=== PATIENT | female | born 1945 | race Caucasian/White ===

== ENCOUNTER 2018-10-13 11:02 | Inpatient (IN) | payer MEDICARE, BC ==
--- NOTE | 2018-10-13 11:48 | RAD ---
XR Chest 1 View Portable History: Chest pain Comparison: Radiograph 2013 Findings: There is a opacity within the lingula. Mild blunting left lateral costophrenic sulcus. Righ t lung is relatively clear. No pneumothorax. Impression: Lingular opacity with small left effusion concerning for infection.
[2018-10-13 11:53] LABS: Bilirubin Small (Negative); Blood, Urine Trace (Negative); Glucose, Urine (Dipstick) Negative (Negative); Leukocyte Negative (Negative); Nitrite Negative (Negative); Protein, Urine (Dipstick) Trace mg/dL (Neg-Trace); Urobilinogen 0.2 mg/dL (0.2-1.0)
[2018-10-13 11:56] LABS: Clarity Clear (Clear)
[2018-10-13 12:00] LABS: Hyaline Casts/LPF 0-3 HYALINE CAST LPF (0-3 Hyaline); Other Microscopic Description Less than 2 mL rec'd; RBC/HPF None Seen HPF (0-3); Squamous Epithelial 0-3 HPF (0-3); WBC/HPF 0-3 HPF (0-3)
[2018-10-13 12:28] LABS: #Eosinphils 0.1 thou/uL (0.0-0.7); #Lymphocytes 1.5 thou/uL (1.20-3.40); #Monocytes 0.9 thou/uL (0.11-0.59); #Neutrophils 11.4 thou/uL (1.40-6.50); %Basophils 0.1 % (0.0-1.0); %Eosinophils 0.5 % (0.0-10.0); %Lymphocytes 10.8 % (21.0-51.0); %Monocytes 6.2 % (0.0-10.0); %Neutrophils 82.4 % (42.0-75.0); Hemoglobin 14.5 g/dL (12.0-16.0); Mean Corpuscular HGB CONC 33.7 g/dL (32.0-36.0); Mean Corpuscular Hemoglobin 30.3 pg (27.0-31.0); Mean Corpuscular Volume 89.8 fL (78.0-98.0); Platelet Count 376 thou/uL (130-400); RBC Distribution Width 14.1 % (11.5-14.5); Red Blood Cell (RBC) Count 4.78 mill/uL (4.20-5.40); White Blood Cell (WBC) Count 13.9 thou/uL (4.8-10.8)
[2018-10-13 12:37] LABS: Prothrombin Time 22.7 SEC (12.0-14.7)
[2018-10-13 12:53] LABS: ALT (SGPT) 11 U/L (8-55); AST (SGOT) 17 U/L (5-34); Albumin 4.2 g/dL (3.4-4.8); Alkaline Phosphatase 87 U/L (40-150); Anion Gap 19 mmol/L (10-20); BUN (Urea Nitrogen) 25 mg/dL (9.8-20.1); Bilirubin, Total 0.6 mg/dL (0.2-1.2); Calc. Creatinine Clearance 0 mL/min (70-130); Calcium 10.7 mg/dL (7.8-10.44); Carbon Dioxide 34 mmol/L (23-31); Chloride 85 mmol/L (98-107); Estimated GFR-MDRD 29; Globulin 3.3 g/dL (2.4-3.5); Glucose 96 mg/dL (83-110); Lipase 13 U/L (8-78); Protein, Total 7.5 g/dL (6.0-8.3); Sodium 135 mmol/L (136-145)
[2018-10-13 13:07] LABS: Potassium 2.8 mmol/L (3.5-5.1)
[2018-10-13 13:12] LABS: CKMB 1.3 ng/mL (0-6.6)
[2018-10-13] MEDS ORDERED: Potassium Chloride 20 MEQ TAB ONE (13:42)
[2018-10-13] MEDS ORDERED: Fentanyl 100 MCG/2 ML VIAL ONE ×2 (13:42→17:34)
--- NOTE | 2018-10-13 13:52 | CT ---
Abdomen CT without contrast Pelvic CT without contrast History abdominal pain. Chest pain. FINDINGS: Abdomen CT: Lung bases are clear Heart size. No fluid. Visualized aorta has a normal caliber Limited evaluation of the solid organs by the lack of IV contrast. Grossly no solid organ abnormality Surgically absent gallbladder Bilaterally no hydronephrosis, nephrolithiasis or perinephric fat stranding. Bilateral ureters have a normal caliber. No hydroureter, perirenal periureteral fat stranding or ureterolithiasis No gastrohepatic, retrocrural or periportal lymphadenopathy No mesenteric mass or lymphadenopathy free air or free fluid No evidence of bowel herniation Limited evaluation of the alimentary canal by the lack of oral contrast. Bariatric postsurgical dixon es are noted. There is mild dilatation of the proximal Celeste limb. Remaining small bowel loops are unremarkable. Ileocecal junction is normal. Appendix is unremarkable. Catheter fecal material in a no ndistended, nondilated colon. Diverticulosis, without evidence of diverticulitis CT PELVIS: Hysterectomy changes. No pelvic mass, lymphadenopathy, free air or free fluid No lytic or blastic changes in the osseous structures. There is a stent in the left external iliac ar karen and common femoral artery. IMPRESSION: 1. No evidence of obstructive uropathy 2. Prominence of the proximal Celeste limb. Significance is uncertain. No evidence of high-grade obstruc tion. 3. Normal caliber appendix.
[2018-10-13] MEDS ORDERED: cefTRIAXone\\ROCEPHIN 1 GM VIAL ONE (14:12)
[2018-10-13 15:41] LABS: Troponin I 0.017 ng/mL (< 0.028)
--- NOTE | 2018-10-13 16:14 | PDOC.FPRHP ---
- History of Present Illness Chief Complaint: Vomiting, abdominal pain, chest pain History of Present Illness: 73 yo female with history of COPD, HTN, PAD, and bariatric surgery presents to the ED today complaining of vomiting, abdominal pain, and chest pain. The pt's stated that about 3 mo ago the pt was admitted for respiratory failure, at which time he states he believes the pt coded, since then she has had difficulty with her short term memory. and pt state that starting about a week ago the pt had been complaining of abdominal and flank pain. 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 Due to this the pt has been utilizing stool softeners at home to prevent a SBO. Pt states her last BM was 3 days ago which is typical for her. Last night the pt was experiencing epigastric/chest pain pain that she felt was related to GERD. Then this morning around 1am the pts stated that the pt got up from bed, complained of severe dizziness, and slumped back on to the bed unresponsive with her eyes open. She was breathing normally throughout this time. Afterwards the pt was acting normal. Through the remainder of the morning the patient was having more upper abdominal/chest pain pain, dizziness, lack of appetite, and shortness of breath prompting the evaluation in the ED today. Pt utilizes supplemental O2 at home and runs between 2.5-3L and nebulizers. After discussing CXR findings with pt including a left lower lobe effusion and consolidation pt's stated that the pt has a known "scar" or "nodule" in the area of her lung that has been previously evaluated and they are aware. ED Course: While in ED pt recieved Duoneb, rocephin, fentanyl, and 1L of fluid Troponin 0.029; CKMB 1.3; Potassium 2.8; Mg 1.9; BUN 25; Cr 1.73; Ca 10.7; PT 22.7; WBC 13.9; Neut 82.4% - Allergies/Adverse Reactions Allergies Allergy/AdvReac Type Severity Reaction Status Date / Time hydrocodone Allergy Verified 10/13/18 16:28 meperidine [From Demerol] Allergy Verified 10/13/18 16:28 Penicillins Allergy Verified 10/13/18 16:28 - Home Medications Medication Instructions Recorded Confirmed Type ALPRAZolam [Alprazolam] 0.5 mg PO BID PRN 10/13/18 10/13/18 History Furosemide 80 mg PO PRN PRN 10/13/18 10/13/18 History predniSONE 10 mg PO DAILY 10/13/18 10/13/18 History - History PMHx: COPD, PAD, SBO, TIA PSHx: Femoral bypass x3, gastric sleeve, back surgery, cholecystectomy, total abdominal hysterectomy Social: Smokes 4 cigarettes per day - Review of Systems General: reports: fatigue Respiratory: reports: cough, shortness of breath, exercise intolerance Cardiovascular: reports: chest pain (lower chest) Gastrointestinal: reports: nausea, vomiting, abdominal pain (upper) Musculoskeletal: reports: other (flank pain bilaterally) Neurological: reports: syncope (vs. near syncope), weakness (generalized), other (dizziness) - Vital signs BP: 121/96 HR: 84 RR: 20 Tmax: 98.5 Pox: 100% on 1L Wt: 77.4 kg - Physical Exam Constitutional: awake, alert and oriented HEENT: grossly normal hearing Neck: FROM Chest: no-tender to palpation, no lesions Heart: RRR, normal S1/S2, pulses present -Lungs: mild inspiratory and moderate expiratory wheezing noted prolonged expiratory phase breath sounds mildly decreased in left lower lobe Abdomen: soft, non-tender, bowel sounds present Musculoskeletal: normal structure, normal tone, ROM grossly normal Neurological: no focal deficit -Neurological: short term memory is impaired - reports baseline Skin: no rash/lesions Psychiatric: normal mood and affect, good judgment and insight FMR H&P: Results - Labs Result Diagrams: 10/13/18 12:20 10/13/18 12:20 Lab results: WBC 13.9 thou/uL (4.8-10.8) H 10/13/18 12:20 Hgb 14.5 g/dL (12.0-16.0) 10/13/18 12:20 Hct 42.9 % (36.0-47.0) 10/13/18 12:20 MCV 89.8 fL (78.0-98.0) 10/13/18 12:20 Plt Count 376 thou/uL (130-400) 10/13/18 12:20 Neutrophils % 82.4 % (42.0-75.0) H 10/13/18 12:20 Sodium 135 mmol/L (136-145) L 10/13/18 12:20 Potassium 2.8 mmol/L (3.5-5.1) L* 10/13/18 12:20 Chloride 85 mmol/L (98-107) L 10/13/18 12:20 Carbon Dioxide 34 mmol/L (23-31) H 10/13/18 12:20 BUN 25 mg/dL (9.8-20.1) H 10/13/18 12:20 Creatinine 1.73 mg/dL (0.6-1.1) H 10/13/18 12:20 Glucose 96 mg/dL (83-110) 10/13/18 12:20 Calcium 10.7 mg/dL (7.8-10.44) H 10/13/18 12:20 Total Bilirubin 0.6 mg/dL (0.2-1.2) 10/13/18 12:20 AST 17 U/L (5-34) 10/13/18 12:20 ALT 11 U/L (8-55) 10/13/18 12:20 Alkaline Phosphatase 87 U/L (40-150) 10/13/18 12:20 CK-MB (CK-2) 1.3 ng/mL (0-6.6) 10/13/18 12:20 Serum Total Protein 7.5 g/dL (6.0-8.3) 10/13/18 12:20 Albumin 4.2 g/dL (3.4-4.8) 10/13/18 12:20 Lipase 13 U/L (8-78) 10/13/18 12:20 Urine Ketones Negative mg/dL (Negative) 10/13/18 11:39 Urine Blood Trace (Negative) H 10/13/18 11:39 Urine Nitrite Negative (Negative) 10/13/18 11:39 Ur Leukocyte Esterase Negative (Negative) 10/13/18 11:39 Urine RBC None Seen HPF (0-3) 10/13/18 11:39 Urine WBC 0-3 HPF (0-3) 10/13/18 11:39 Ur Squamous Epith Cells 0-3 HPF (0-3) 10/13/18 11:39 - EKG Interpretation EKG: EKG: NSR 90bpm w/ premature atrial complexes, septal infarct, age undetermined, ST and T waves normal - Radiology Interpretation Chest x-ray Status: report reviewed by me Additional comment: CXR: Lingular opacity with small left effusion concerning for infection CT scan - abdomen Status: report reviewed by me Additional comment: CT abdomen pelvis w/o contrast: Prominence of proximal Celeste limb significance uncertain. No other significant findings. FMR H&P: A/P - Problem List (1) Chronic respiratory failure with hypoxia, on home O2 therapy Current Visit: Yes Status: Acute Code(s): J96.11 - CHRONIC RESPIRATORY FAILURE WITH HYPOXIA; Z99.81 - DEPENDENCE ON SUPPLEMENTAL OXYGEN (2) Chest pain Current Visit: Yes Status: Acute Code(s): R07.9 - CHEST PAIN, UNSPECIFIED (3) COPD (chronic obstructive pulmonary disease) Current Visit: Yes Status: Chronic (4) Pre-syncope Current Visit: Yes Status: Acute (5) Hyperkalemia Current Visit: Yes Status: Acute Code(s): E87.5 - HYPERKALEMIA (6) Acute kidney injury Current Visit: Yes Status: Acute Code(s): N17.9 - ACUTE KIDNEY FAILURE, UNSPECIFIED Comment: vs CKD (7) Essential hypertension Current Visit: Yes Status: Chronic Code(s): I10 - ESSENTIAL (PRIMARY) HYPERTENSION - Plan Chest pain - Risk factors present, HEART score 6 - Atypical in nature, no previous cardiac workup - Trending troponin 0.029 --> 0.017 - CKMB 1.3 - Chemical stress test tomorrow - Transthoracic echo - Prn nitro Pneumonia - WBC 13.9 with left shift - Procalcitonin - Trend CBC - Start rocephin and azithromycin - Left lower lobe opacity may be chronic for pt as per given history, however with elevated WBC and pt's symptoms and history deemed reasonable to treat COPD and Chronic respiratory failure with hypoxia - Continue supplemental O2 with goal of 90% - Starting steroids - Scheduled nebulizer tx and additional prn's - ABG to assess for hypercapnea Near syncope - Hypercapnea vs hypoxia vs arrhythmia vs hypotension - Echo and stress - Telemetry admission Emesis - CT abdomen in ED did not identify an obstruction - Gastritis Hypokalemia - Likely a loss secondary to diuretic use and GI loss - Received 40 mEq in the ED, will add another dose tonight - Mg 1.9, ordered - Trend tomorrow Hypochloremia - Likely secondary to GI loss - NS @ 100 - Monitor with BMP Disposition/LOS: Telemetry Stable LOS: Expect 2-3 midnights FMR H&P: Upper Level - Pertinent history 73 yo F w/ PMH of chronic respiratory failure on home O2, COPD, PVD, HTN and recurrent SBOs presents for for atypical chest pain that started night [employer]. Pts also reports pt became unresponsive but had her eyes open and slowly became more alert. Lastly she reports she had NV and abdominal pain yesterday that is currently resolved. Currently she denies CP, sob, NVDC, abdominal pain, fever, chills, sweats, increasing cough. - Pertinent findings ROS: See HPI. PE: Gen- NAD HEENT: NCAT Cards: LE pulses 1+, UE pulses 2+, Heart RRR No MRG Lungs: Diffuse rhonchi with prolonged expiratory phase and expiratory wheezing. No retractions or tachypnea. Extremities: No clubbing cyanosis or edema Skin: Senile purpura b/l UE A/P: 1) Atypical chest pain: - admit tele IP - trend troponins and am stress/echo if downtrend - Pt had lesion on cxr that pt is aware of. Chronic scarring left base. Afebrile but does have a white count with left shift, will cehck procal and cont abx for now 2) Presyncope vs encephalopathy - unclear, pt currently a&oX3 - given long standing history of COPD suspect episode of hypercapnia that has resolved - check abg 3) Chronic hypoxic respiratory failure - check abg 4) COPD: - cont home meds - duonebs and albuterol nebs prn - maintain O2 >90% - abg pending - do not suspect pneumonia or mild exacerbation, will check procalcitonin 5) Elyte abnormalities: likely 2/2 GI loss from NV - trend BMP and replace PRN - For Hyponatremia and hypchloremia, NS @ 100mls/hr - Repolace K prn 6) AMISHA vs CKD - Gently IVF and trend - suspect chronic disease; however, given recent NV and decreased PO intake possible AMISHA on CKD - trend 7) Poor overall prognosis: - pt has had numerous recent hospitalizations and is aware her health is deteriorating - will consult palliative to discuss goals of care and usp outlook - I suspect she is nearing the end of her COPD and she continues to smoke Dispo: Currently stable although 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 Will continue abx for pneumonia coverage and check procal to assess need for continued abx. Workup atypical cp and replace elytes prn. Palliative for goals of care discussion. - Plan Date/Time: 10/13/18 [id number] I, Joaquin Calloway, DO, have evaluated this patient and agree with findings/ plan as outlined by analysis intern resident. Pertinent changes/additions are listed here. See Above. PCP: JUANY Schrader
[2018-10-13] MEDS ORDERED: Ondansetron PF 4 MG/2 ML Vial IVP PRN ×2 (18:14→19:26)
[2018-10-13] MEDS ORDERED: Fentanyl 100 MCG/2 ML VIAL SLOW IVP PRN (18:14)
[2018-10-13] MEDS ORDERED: Ondansetron ODT 4 MG TAB SL PRN (18:14)
[2018-10-13 18:44] VITALS: BMI 28.5
[2018-10-13 19:13] LABS: Troponin I 0.065 ng/mL (< 0.028)
[2018-10-13] MEDS ORDERED: Nitroglycerin 0.4 MG TAB (25 Tab Bottle) PO PRN (19:26)
[2018-10-13] MEDS ORDERED: Albuterol Sulfate 2.5 mg/3 ml Neb NEB PRN (19:26)
[2018-10-13] MEDS ORDERED: Acetaminophen 325 MG TAB PO PRN (19:26)
[2018-10-13] MEDS ORDERED: Ondansetron ODT 4 MG TAB PO PRN (19:26)
[2018-10-13] MEDS ORDERED: Azithromycin 500 MG in Sodium Chloride 0.9% 250 ML 250 ML IVPB SCH (20:00)
[2018-10-13] MEDS ORDERED: Potassium Chloride 20 MEQ TAB PO SCH (20:00)
[2018-10-13] MEDS: Sodium Chloride 0.9% 1,000 ML IV SCH (20:04)
[2018-10-13 20:12] LABS: Phosphorus 3.7 mg/dL (2.3-4.7)
[2018-10-13] MEDS ORDERED: Famotidine 20 MG TAB PO SCH (21:00)
[2018-10-13] MEDS ORDERED: Famotidine/PF 20 mg/2ml Vial SLOW IVP SCH (21:00)
[2018-10-13 21:20] LABS: Actual Bicarbonate (HCO3a) 32.8 mEq/L (22-28); Base Excess (BEa) 7.1 mEq/L (-2.0 to +3.0); CO2 Tension 51.3 mmHg (35.0-45.0); Calcium, Ionized 1.15 mmol/L (1.12-1.30); Carboxyhemoglobin (COHb) 1.8 gm% (0.0-3.0); O2 Tension (PaO2) 91.8 mmHg (> 70.0); Potassium - ABG Lab 3.19 mmol/L (3.70-5.30); pH, Arterial 7.42 (7.35-7.45)
[2018-10-13 21:21] LABS: ALV-art Gradient 43.715 (0-20); Puncture Site RRA
--- NOTE | 2018-10-13 23:33 | HP ---
I have examined the patient. I have discussed the case with Dr. Ragland and agree with his assessment and plan. HISTORY OF PRESENT ILLNESS: Ms. Hoover is a very pleasant 73-year-old lady who started having some vomiting yesterday that had been preceded by a week or two of abdominal pain. She states she has a prior history of small bowel obstruction. She presented to the ER, was now noted to have a mild hypovolemic hyponatremia picture and was admitted for IV fluids and observation. PHYSICAL EXAMINATION: VITAL SIGNS: Stable with a blood pressure of 120/70, pulse rate 74. GENERAL: She is awake, alert, in no acute distress. EARS, NOSE, AND THROAT: Mucous membranes are dry. NECK: Supple. CARDIAC: Heart rhythm is regular with frequent ectopic beats. No gallop or murmur noted. LUNGS: Breath sounds are diminished with few expiratory wheezes, but no rales or consolidation noted. ABDOMEN: Diffusely and minimally tender without guarding, rebound, or rigidity. EXTREMITIES: Trace edema. NEUROLOGICAL: No focal deficits. LABORATORY DATA: CBC; white count is 13,900, hemoglobin 14.5, hematocrit 42.9 with an MCV of 89. Chemistries; sodium 135, potassium 2.8, chloride 85, bicarb 34, BUN 25, creatinine 1.73. CT of the abdomen, this shows no evidence of an obstructive uropathy. There is prominence of the proximal Celeste limb. No high-grade obstruction, normal caliber appendix. Chest x-ray shows a lingular opacity with small left effusion concerning for possible infection. ASSESSMENT: 1. Gastroenteritis with volume depletion and mild hyponatremia. 2. Pneumonia. PLAN: Begin fluids and antibiotics and monitor electrolytes. Replace potassium. Job ID: [id number]
[2018-10-14] MEDS ORDERED: Polyethylene Glycol 3350 17 GM Packet PO PRN (01:56)
[2018-10-14] MEDS ORDERED: cefTRIAXone\\ROCEPHIN 1 GM in Sodium Chloride 0.9% 100 ML IVPB SCH ×2 (02:00→14:00)
[2018-10-14] MEDS ORDERED: Docusate 100 MG CAP PO SCH ×2 (02:00→09:00)
[2018-10-14] MEDS ORDERED: Polyethylene Glycol 3350 17 GM Packet PO SCH (02:00)
--- NOTE | 2018-10-14 02:33 | PDOC.EVN ---
Event Note - Event Note Event Note: Was called for patients back and abdominal pain at 0200. She was requesting more fentanyl, but has not had a bowel movement in X3 days. Due to her history of SBO, I recommended no more fentanyl at this time. Discussed with the patient the need to treat the constipation first to see if her pain level decreases. She states she usually takes a stool softener and Miralax at home. Will restart these home medications. The patient was very tearful over the stress she is experiencing in life. She states she takes Xanax 0.5 mg at home to control her anxiety. Will restart this home medication at this time.
[2018-10-14 02:51] LABS: #Eosinphils 0.1 thou/uL (0.0-0.7); #Lymphocytes 2.3 thou/uL (1.20-3.40); #Monocytes 1.1 thou/uL (0.11-0.59); #Neutrophils 8.7 thou/uL (1.40-6.50); %Basophils 0.2 % (0.0-1.0); %Eosinophils 1.1 % (0.0-10.0); %Lymphocytes 18.8 % (21.0-51.0); %Monocytes 8.8 % (0.0-10.0); Hemoglobin 12.3 g/dL (12.0-16.0); Mean Corpuscular HGB CONC 33.6 g/dL (32.0-36.0); Mean Corpuscular Hemoglobin 30.2 pg (27.0-31.0); Mean Platelet Volume 7.4 fL (7.4-10.4); Platelet Count 290 thou/uL (130-400); RBC Distribution Width 14.1 % (11.5-14.5); Red Blood Cell (RBC) Count 4.08 mill/uL (4.20-5.40); White Blood Cell (WBC) Count 12.3 thou/uL (4.8-10.8)
[2018-10-14 02:58] LABS: Anion Gap 17 mmol/L (10-20); BUN (Urea Nitrogen) 22 mg/dL (9.8-20.1); Calc. Creatinine Clearance 48 mL/min (70-130); Calcium 9.2 mg/dL (7.8-10.44); Carbon Dioxide 27 mmol/L (23-31); Chloride 97 mmol/L (98-107); Estimated GFR-MDRD 41; Glucose 80 mg/dL (83-110); Potassium 3.6 mmol/L (3.5-5.1); Sodium 137 mmol/L (136-145)
[2018-10-14] MEDS ORDERED: ALPRAZolam 0.5 MG TAB PO SCH ×3 (03:15→09:00)
[2018-10-14] MEDS: traMADol HCl 50 MG TAB PO PRN ×2 (03:18→16:08)
[2018-10-14 03:26] LABS: CKMB 2.1 ng/mL (0-6.6)
--- NOTE | 2018-10-14 06:57 | PDOC.FM ---
- Subjective Subjective: Pt had some abdominal pain over the night which was treated appropriately with tramadol and her home medications. This morning she states she is feeling much better, no nausea, vomiting, or abdominal pain. She is hoping to be discharged. I spoke with her about the importance of fully evaluating her chest pain and elevated cardiac markers. She states she had a stress test before and does not want to do it again because she did not like how she felt during it and she does not want to be NPO anymore. She also mentioned she has previously had a heart cath but denies any stent placement. She is agreeable to the cardiac echo. Pt was informed of her potassium level and states that she takes lasix at home when her feet swell up and has been using it recently. - Objective MAR Reviewed: Yes Vital Signs & Weight: Vital Signs (12 hours) Temp Pulse Resp BP Pulse Ox 10/14/18 06:51 100 10/14/18 06:48 74 16 100 10/14/18 04:00 98.3 F 81 18 126/59 L 94 L 10/14/18 01:46 89 18 100 10/13/18 20:28 92 18 100 10/13/18 20:00 97.8 F 72 18 120/58 L 100 Weight Weight 75.568 kg I&O: 10/12/18 10/13/18 10/14/18 06:59 06:59 06:59 Intake Total 1350 Output Total 300 Balance 1050 Result Diagrams: 10/14/18 02:32 10/14/18 02:32 Phys Exam - Physical Examination Constitutional: NAD HEENT: PERRLA Neck: full ROM Respiratory: wheezing present (all ly, mild interval improvement from last night) Cardiovascular: RRR difficult to auscultate due to audible breath sounds Gastrointestinal: soft, non-tender, no distention, positive bowel sounds Musculoskeletal: no edema, pulses present Neurological: non-focal, moves all 4 limbs Psychiatric: normal affect, A&O x 3 Dx/Plan (1) Chronic respiratory failure with hypoxia, on home O2 therapy Code(s): J96.11 - CHRONIC RESPIRATORY FAILURE WITH HYPOXIA; Z99.81 - DEPENDENCE ON SUPPLEMENTAL OXYGEN Status: Acute (2) Chest pain Code(s): R07.9 - CHEST PAIN, UNSPECIFIED Status: Acute (3) COPD (chronic obstructive pulmonary disease) Status: Chronic (4) Pre-syncope Status: Acute (5) Hyperkalemia Code(s): E87.5 - HYPERKALEMIA Status: Acute (6) Acute kidney injury Code(s): N17.9 - ACUTE KIDNEY FAILURE, UNSPECIFIED Status: Acute (7) Essential hypertension Code(s): I10 - ESSENTIAL (PRIMARY) HYPERTENSION Status: Chronic (8) Vomiting Code(s): R11.10 - VOMITING, UNSPECIFIED Status: Resolved Qualifiers: Vomiting type: unspecified Vomiting Intractability: non-intractable Nausea presence: with nausea Qualified Code(s): R11.2 - Nausea with vomiting, unspecified - Plan Plan: 1) Atypical chest pain: - admit tele IP - trended troponins: 0.029 -> 0.017 -> 0.065 -> 0.041 - Pt had lesion on cxr that pt is aware of. Chronic scarring left base. Afebrile but does have a white count with left shift - procalcitonin 0.04 - suggests etiology of CP and WBC not likely to be 2/2 pna 2) Presyncope vs encephalopathy - unclear, pt currently a&oX3 - given long standing history of COPD suspect episode of hypercapnia that has resolved - abg: pH 7.42, pCO2 51, pO2 92, bicarb 33 - pt is slightly hypercapneic, may worsen at night, pH is likely more alkalotic than pt's baseline due to GI sx 3) Chronic hypoxic respiratory failure - abg as above 4) COPD: - cont home meds - duonebs and albuterol nebs prn - maintain O2 >90% - abg as above - do not suspect pneumonia or mild exacerbation 5) Elyte abnormalities: likely 2/2 GI loss from NV - trend BMP and replace PRN - For Hyponatremia and hypchloremia, NS @ 100mls/hr - Replace K prn 6) AMISHA vs CKD - Gently IVF and trend - suspect chronic disease; however, given recent NV and decreased PO intake possible AMISHA on CKD - Cr 1.73 -> 1.27, suggests prerenal cause resolving with IV fluids 7) Vomiting and abdominal pain - gastritis vs sbo - CT w/o suggests not obstructive but stenotic region visualized - N/V resolved overnight 8) Poor overall prognosis: - pt has had numerous recent hospitalizations and is aware her health is deteriorating - will consult palliative to discuss goals of care and long-term outlook - I suspect she is nearing the end of her COPD and she continues to smoke Dispo: Stable, abdominal pain and N/V resolved at this point, no chest pain overnight Dispo: Today or tomorrow pending pts decision on cardiac testing and PO tolerance Addendum - Attending - Attending Attestation Date/Time: 10/14/18 6340 I personally evaluated the patient and discussed the management with Dr. Ragland. I agree with the History, Examination, Assessment and Plan documented above with any addition or exceptions noted below. The patient declines a stress test because she doesn't like how they make her feel. She also will not go through with a heart cath or cardiac surgery if it is abnormal. She requests to go home. We have discussed the risks associated with not checking for blockage and she voices understanding.
[2018-10-14] MEDS: Sodium Chloride 0.9% 1,000 ML IV SCH ×2 (08:15→15:10)
[2018-10-14] MEDS ORDERED: predniSONE 20 MG TAB PO SCH (09:00)
[2018-10-14] MEDS ORDERED: Enoxaparin Sodium 30 MG/0.3 ML SYRINGE SC SCH (09:00)
[2018-10-14] MEDS ORDERED: Potassium Chloride 20 MEQ TAB PO SCH (10:00)
[2018-10-14 11:47] VITALS: TEMP 98.1
[2018-10-14 16:19] VITALS: BP 118/57
--- NOTE | 2018-10-15 03:18 | DIS ---
DATE OF ADMISSION: 10/13/2018 DATE OF DISCHARGE: 10/14/2018 RESIDENT: Larry Ragland DO ADMITTING ATTENDING: Raphael Cordero MD. DISCHARGE ATTENDING: Celena Alexander MD. PRIMARY DIAGNOSES: Atypical chest pain Presyncope Chronic hypoxic respiratory failure. SECONDARY DIAGNOSES: Chronic obstructive pulmonary disease Electrolyte abnormalities Acute kidney injury versus chronic kidney disease. HISTORY OF PRESENT ILLNESS: A 73-year-old female with history of COPD, hypertension, peripheral artery disease, and bariatric surgery, presents to the ER today complaining of vomiting, abdominal pain, and chest pain. The patient's stated that about 3 months ago, the patient was admitted for respiratory failure, at which time, he states he believed the patient coded, since then she has had difficulty with her short term memory. Pt has experienced 1 week of abdominal and flank pain. She states she has a history of SBO and her last bowel movement was 3 days ago which is typical for her. Last night, the patient was experiencing epigastric and chest pain that she felt was related to GERD. Early this morning around 1 a.m., the patient's stated that she got up from bed complained of severe dizziness and then slumped back. She was unresponsive for about 2 minutes while still breathing with her eyes open before spontaneously becoming arouse and acting normal afterwards. Pt has chronic COPD and is on 2.5-3L of O2 at home suggesting the syncope may be related to hypercapnea. For the remainder of the morning, the patient was having upper abdominal and chest pain, dizziness, lack of appetite, and shortness of breath prompting the evaluation in the ER. Chest x-ray in the ED showed a left lower lobe consolidation and effusion, stated that the patient has an old scar or nodule in the area of her lung that has been previously evaluated and they are aware of. ED workup also showed a mild leukocytosis. The patient was admitted to inpatient telemetry for cardiac rule out and management of her GI sx. Early in the night , we were called due to the patient complaining of increased abdominal pain. Her home medications were restarted at that time. Pt was started on abx for possible pna. Upon evaluation this morning, the patient states that she is feeling much better, her abdominal pain has resolved and she has not vomited since admission. The patient requests to go home now that she is feeling better. We discussed the need to work up her chest pain due to her risk factors. The patient states that she has had a previous stress test preformed and would not like to undergo this again, but is agreeable to the echo which was performed later that day. I had an extensive discussion on the risks of not performing a stress test. Discussion with the pt concluded that even if an abnormality or blockage was to be found on stress test, she would not want to undergo any interventions to resolve this due to her unlikelihood of being able to survive any procedures or interventions. The patient expressed understanding of the risks and benefits of this plan. The patient's trended troponins during her stay included 0.029, up to a high of 0.065. Her creatinine improved from 1.73 to 1.27 after administration of fluids. Her procalcitonin was negative. Her ABGs indicated mild hypercapnia with a pH of 7.42. The patient received 2 doses of Rocephin and azithromycin, she will be sent home with an additional 5 days of Levaquin to finish her treatment of suspected pneumonia. IMAGING STUDIES: Abdominal CT without contrast: No evidence of obstructive uropathy, prominence of the proximal Celeste limb, significances uncertain. No evidence of high grade obstruction. Normal caliber appendix. Chest x-ray: Lingular opacity with small left effusion concerning for infection. DISPOSITION: Stable. DISCHARGE INSTRUCTIONS: 1. Location: Home. 2. Diet: Heart healthy. 3. Activity: As tolerated. No restrictions. 4. Followup: PCP, Dr. Caesar Li in 3 days from discharge. Job ID: [id number] [facility]
== END 2018-10-14 17:33 | disposition home or self-care (01) | DRG 682 ==
LOC: ERS 11:02 → ERHOLD 14:49 → 2NO 18:07
PROVIDERS: ADMIT Family Medicine; ATTEND Family Medicine
DX: N17.9 Acute kidney failure, unspecified (principal); J18.9 Pneumonia, unspecified organism; J96.11 Chronic respiratory failure with hypoxia; E87.1 Hypo-osmolality and hyponatremia; J44.0 Chronic obstructive pulmonary disease with (acute) lower respiratory infection; J96.12 Chronic respiratory failure with hypercapnia; R07.89 Other chest pain; I73.9 Peripheral vascular disease, unspecified; F17.210 Nicotine dependence, cigarettes, uncomplicated; E87.5 Hyperkalemia; E87.6 Hypokalemia; N18.9 Chronic kidney disease, unspecified; R55 Syncope and collapse; I12.9 Hypertensive chronic kidney disease with stage 1 through stage 4 chronic kidney disease, or unspecified chronic kidney disease; E87.8 Other disorders of electrolyte and fluid balance, not elsewhere classified; K59.00 Constipation, unspecified; F41.9 Anxiety disorder, unspecified; Z98.84 Bariatric surgery status; Z88.8 Allergy status to other drugs, medicaments and biological substances; Z88.0 Allergy status to penicillin; Z88.5 Allergy status to narcotic agent; Z99.81 Dependence on supplemental oxygen; Z90.49 Acquired absence of other specified parts of digestive tract; Z90.710 Acquired absence of both cervix and uterus
CPT/HCPCS: 36415; 71045; 74176; 80048; 80053; 81001; 81003; 81015; 82553; 82805; 83690; 83735; 84100; 84145; 84484; 85025; 85610; 87040; 87086; 93005; 93306; 94640; 94760; 96361; 96365; 96375; 96376; J0456; J0696; J1650; J3010; J7050; J7512; J7620

== ENCOUNTER 2019-07-27 17:26 | Emergency (ER) | payer MEDICARE, BC ==
[~2019-07-27 17:26] MED LIST: Iopamidol 370 76% 100 ML VIAL ONE
[2019-07-27] MEDS ORDERED: Ondansetron PF 4 MG/2 ML Vial ONE (18:05)
[2019-07-27 18:14] LABS: Hemoglobin 15.7 g/dL (12.0-16.0); Mean Corpuscular HGB CONC 32.4 g/dL (32.0-36.0); Mean Corpuscular Hemoglobin 30.6 pg (27.0-31.0); Mean Corpuscular Volume 94.5 fL (78.0-98.0); Mean Platelet Volume 7.1 fL (7.4-10.4); Platelet Count 267 thou/uL (130-400); RBC Distribution Width 13.8 % (11.5-14.5); Red Blood Cell (RBC) Count 5.13 mill/uL (4.20-5.40); White Blood Cell (WBC) Count 16.2 thou/uL (4.8-10.8)
[2019-07-27 18:31] LABS: ALT (SGPT) 15 U/L (8-55); AST (SGOT) 20 U/L (5-34); Alkaline Phosphatase 55 U/L (40-110); Anion Gap 15 mmol/L (10-20); BUN (Urea Nitrogen) 25 mg/dL (9.8-20.1); Bilirubin, Total 0.4 mg/dL (0.2-1.2); Calc. Creatinine Clearance 0 mL/min (70-130); Calcium 10.1 mg/dL (7.8-10.44); Carbon Dioxide 31 mmol/L (23-31); Chloride 99 mmol/L (98-107); Estimated GFR-MDRD 64; Globulin 3.2 g/dL (2.4-3.5); Glucose 76 mg/dL (83-110); Lipase 16 U/L (8-78); Potassium 4.8 mmol/L (3.5-5.1); Protein, Total 7.2 g/dL (6.0-8.3); Sodium 140 mmol/L (136-145)
--- NOTE | 2019-07-27 18:31 | RAD ---
Chest one view HISTORY: Dyspnea. Chest pain. COMPARISON: 10/13/2018. FINDINGS: Cardiac silhouette is magnified and enlarged. Mediastinum is midline. No lobar consolidation or evidence of pneumothorax. Lungs remain hyperinflated. Calcified granulomata are consistent with healed granulomatous disease. C ardiac monitor leads overlie the chest. IMPRESSION : Pulmonary hyperinflation. Chronic-type findings are stable.
[2019-07-27 18:41] LABS: Band 6 % (5-11); Lymphocytes 8 % (21-51); MDiff Complete? YES; Monocytes 9 % (0-10); Neutrophil 74 % (42-75); Platelet Morphology Comment Appears Adequate; Polychromasia SLIGHT = 2-3 cells (100X) (0-2/hpf); Reactive Lymphocytes 3 % (0-10)
--- NOTE | 2019-07-27 19:12 | CT ---
CT abdomen and pelvis with IV contrast HISTORY: Abdominal pain. COMPARISON: 10/13/2018. FINDINGS: Tiny nonspecific calcified nodule at the left posterior lung base. A lobular well circumscr ibed fluid collection adjacent to the posterior subdiaphragmatic dome of the right liver lobe, 4.7 cm x 1.4 cm greatest diameters on today's study, is stable. Gallbladder is surgically absent with associated distention of the biliary system. Postoperative and degenerative changes of the lumbar spine. Diverticula arise from the colon without adjacent inflammation. Prominent calcification within the arterial structures with left iliac and femoral stent and suspecte d high-grade obstruction/occlusion of the femoral arteries. Postoperative changes of the stomach and proximal small bowel are again demonstrated. Mild fluid and gaseous distention of the small bowel. While a portion of the distal ileum is decompressed, there is good fluid distention of the terminal ileum that does not appear inflamed IMPRESSION : Mild fluid distention of the stomach and small bowel. Postoperative changes are present. Findings are not suggestive of obstruction. Diverticulosis. No evidence of diverticulitis. Prominent atherosclerosis. Chronic-type findings are stable.
[2019-07-27] MEDS ORDERED: Fentanyl 100 MCG/2 ML VIAL ONE (19:19)
[2019-07-27] MEDS ORDERED: Promethazine HCl 25 MG/ML VIAL ONE (19:24)
[2019-07-27 20:18] LABS: Bacteria/HPF None Seen HPF (None Seen); Bilirubin Negative (Negative); Blood, Urine 1+ (Negative); Clarity Clear (Clear); Glucose, Urine (Dipstick) Normal (Negative); Leukocyte Negative Leu/uL (Negative); Nitrite Negative (Negative); Protein, Urine (Dipstick) Negative (Neg-Trace); RBC/HPF 21-50 HPF (0-3); Squamous Epithelial 0-3 HPF (0-3); Urobilinogen Normal mg/dL (Less than 2); WBC/HPF 0-3 HPF (0-3)
== END 2019-07-27 23:35 | disposition home or self-care (01) ==
LOC: ERS 17:26
DX: R11.2 Nausea with vomiting, unspecified (principal); J44.9 Chronic obstructive pulmonary disease, unspecified; R19.7 Diarrhea, unspecified; R10.84 Generalized abdominal pain; K56.609 Unspecified intestinal obstruction, unspecified as to partial versus complete obstruction; F41.9 Anxiety disorder, unspecified; F17.210 Nicotine dependence, cigarettes, uncomplicated; Z79.899 Other long term (current) drug therapy; Z79.891 Long term (current) use of opiate analgesic; Z79.01 Long term (current) use of anticoagulants
CPT/HCPCS: 71045; 74177; 80053; 83690; 85025; 87086; 93005; 94640 ×2; J0500; J2405; J2550; J3010; J7620; Q9967; 51701; 81003; 81015; 96361; 96365; 96372; 96375; A4353

== ENCOUNTER 2020-02-19 23:54 | Inpatient (IN) | payer MEDICARE, BC ==
[2020-02-20] MEDS ORDERED: Diltiazem 125 MG/25 ML ONE (00:13)
[2020-02-20] MEDS ORDERED: Albuterol 200 PUFF (6.7GM INHALER) ONE (00:34)
[2020-02-20 00:36] LABS: #Eosinphils 0.1 thou/uL (0.0-0.7); #Lymphocytes 2.4 thou/uL (1.20-3.40); #Monocytes 1.3 thou/uL (0.11-0.59); #Neutrophils 13.1 thou/uL (1.40-6.50); %Basophils 0.2 % (0.0-1.0); %Eosinophils 0.9 % (0.0-10.0); %Lymphocytes 13.9 % (21.0-51.0); %Monocytes 7.9 % (0.0-10.0); %Neutrophils 77.1 % (42.0-75.0); Hemoglobin 13.8 g/dL (12.0-16.0); Mean Corpuscular HGB CONC 33.5 g/dL (32.0-36.0); Mean Corpuscular Hemoglobin 31.3 pg (27.0-31.0); Mean Corpuscular Volume 93.3 fL (78.0-98.0); Mean Platelet Volume 8.5 fL (7.4-10.4); Platelet Count 226 thou/uL (130-400); RBC Distribution Width 14.1 % (11.5-14.5); Red Blood Cell (RBC) Count 4.42 mill/uL (4.20-5.40)
[2020-02-20] MEDS ORDERED: Aspirin 325 MG TAB ONE (01:19)
[2020-02-20 01:20] LABS: PTT 29.4 sec (22.9-36.1); Prothrombin Time 23.3 sec (12.0-14.7)
[2020-02-20 01:26] LABS: CKMB 3.4 ng/mL (0-6.6)
[2020-02-20 01:34] LABS: ALT (SGPT) 22 U/L (8-55); AST (SGOT) 28 U/L (5-34); Albumin 3.5 g/dL (3.4-4.8); Alkaline Phosphatase 68 U/L (40-110); Anion Gap 17 mmol/L (10-20); BUN (Urea Nitrogen) 16 mg/dL (9.8-20.1); Bilirubin, Total 0.3 mg/dL (0.2-1.2); Calc. Creatinine Clearance 0 mL/min (70-130); Calcium 9.2 mg/dL (7.8-10.44); Carbon Dioxide 23 mmol/L (23-31); Chloride 103 mmol/L (98-107); Estimated GFR-MDRD 50; Globulin 2.8 g/dL (2.4-3.5); Glucose 107 mg/dL (83-110); Potassium 4.8 mmol/L (3.5-5.1); Protein, Total 6.3 g/dL (6.0-8.3); Sodium 138 mmol/L (136-145)
[2020-02-20 02:17] LABS: Analyzer IN Cardio ER; Base Excess (BEa) -1.1 mEq/L (-2.0 to +3.0); CO2 Tension 41.4 mmHg (35.0-45.0); Calcium, Ionized (arterial) 1.18 mmol/L (1.12-1.30); Carboxyhemoglobin (COHb) 0.8 gm% (0.0-3.0); Hemoglobin (Hb) 14.1 g/dL (12.0-16.0); O2 Tension (PaO2), arterial 106.1 mmHg (> 70.0); Potassium - ABG Lab 4.79 mmol/L (3.70-5.30); pH, Arterial 7.38 (7.35-7.45)
[2020-02-20 02:21] LABS: Puncture Site RRA
[2020-02-20] MEDS ORDERED: Amiodarone 450 MG, Admixture Fee 1 EACH in Dextrose 5% in Water 250 ML IVPB SCH (02:45)
[2020-02-20] MEDS ORDERED: methylPREDNISolone Sod Succ/PF 125 MG/2 ML VIAL ONE (03:32)
--- NOTE | 2020-02-20 04:30 | HP ---
REASON FOR ADMISSION: Shortness of breath. HISTORY OF PRESENT ILLNESS: This is a 74-year-old female patient who is known to have COPD, on home oxygen, on chronic prednisone, also known to have atrial fibrillation. She chronically wheezes, but today she felt more short of breath and felt palpitations. She was sent to our emergency room, found to be in rapid atrial fibrillation and was started on a Cardizem drip, but heart rate was not well controlled. Her blood pressure was on the low side. She was transitioned to an amiodarone drip. Also given a breathing treatment and just gave her a dose of IV Solu-Medrol as she continues to wheeze and complained of shortness of breath, asking for more neb treatments. The patient denies fevers. Denies chills. Denies sick contacts. Denies recent travel. I did review her records. Her last admission was approximately a year ago for atypical chest pain and presyncope. She was admitted to telemetry and was started on antibiotics for possible pneumonia. She elected not to undergo a stress test since she had one recently at that time. PAST MEDICAL HISTORY: 1. COPD, on home oxygen 2.5 L, on chronic prednisone. 2. Atrial fibrillation. 3. Bowel obstruction. 4. TIA. 5. Peripheral arterial disease. 6. Status post femoral-popliteal bypass. 7. Status post gastric sleeve. 8. Back surgery. 9. Cholecystectomy. 10. Hysterectomy. SOCIAL HISTORY: Continues to smoke on a daily basis. Does not drink alcohol. FAMILY HISTORY: Negative for premature coronary artery disease. ALLERGIES: TO HYDROCODONE, MEPERIDINE, MORPHINE, AND PENICILLIN. REVIEW OF SYSTEMS: All systems reviewed except the above mentioned, found to be negative. PHYSICAL EXAMINATION: GENERAL: Awake, alert, oriented, does appear short of breath. VITAL SIGNS: Her blood pressure is 105/71, pulse variable between 110 and 130, respiratory rate 24, saturating 95% on 4 L nasal cannula. HEENT: Head; nontraumatic, normocephalic. Pupils equal, reactive. Extraocular movements are intact. Nonicteric sclerae. Well injected conjunctivae. Oral mucosa normal. Nasal mucosa normal. NECK: Supple. No adenopathy. No murmur. Thyroid is not palpable. Trachea is midline. No supraclavicular adenopathy. HEART: S1, S2. Irregular. No displacement of PMI. LUNGS: Decreased air entry bilaterally. Diffuse expiratory wheezes and rhonchi. ABDOMEN: Bowel sounds are positive. Nontender abdomen. No hepatosplenomegaly. EXTREMITIES: No lower extremity edema. No cyanosis noted. She is moving all four extremities. Cranial nerves appeared to be intact. LABORATORY DATA: Blood work shows WBC of 17, hemoglobin of 13.8, platelets of . INR of 2. ABG shows a pH of 7.38, pCO2 of 41.5, bicarb of 24, sodium 138, potassium 4.8, bicarb 23, BUN 16, creatinine 1.07. Troponin 0.763. EKG shows rapid atrial fibrillation. Chest x-ray shows hyperinflated lungs. No infiltrate per my read. ASSESSMENT AND PLAN: This is a 74-year-old female patient presenting with rapid atrial fibrillation, also chronic obstructive pulmonary disease exacerbation. Cardiac: The patient will be admitted to [facility], she is on amiodarone drip. We will continue with that. She is already anticoagulated. We will continue with her home dose of Coumadin. We will check her INR on a daily basis. We will ask Cardiology to see her. Pulmonary: The patient has COPD exacerbation. We will start her on IV Solu- Medrol and neb treatments. It does not look like she has pneumonia, so we would not start her on antibiotics. The patient continues to smoke. She is advised against smoking. For DVT prophylaxis, she will be on SCDs. I attempted to discuss with her code status, she was not able to make a decision. She asked me to call her , but since it is 4:00 a.m. in the morning, the patient will be a full code for now until further notice. one hour of critical time was spent to manage the patient Job ID: [id number] MTDD
[2020-02-20 04:41] LABS: Troponin I 0.868 ng/mL (< 0.028)
[2020-02-20] MEDS ORDERED: methylPREDNISolone Sod Succ/PF 125 MG/2 ML VIAL IVP SCH ×2 (06:00→09:00)
[2020-02-20] MEDS ORDERED: Ipratropium/Albuterol Sulfate 4 GM AER IH PRN (06:56)
[2020-02-20] MEDS ORDERED: Ipratropium/Albuterol Sulfate 4 GM AER IH SCH (07:00)
[2020-02-20 07:43] VITALS: TEMP 96.3
[2020-02-20 07:47] VITALS: BP 96/77; BMI 32.5
[2020-02-20 08:35] LABS: Troponin I 0.942 ng/mL (< 0.028)
--- NOTE | 2020-02-20 08:59 | RAD ---
RADIOGRAPH CHEST 1 VIEW: DATE: 02/20/2020 HISTORY: 74-year-old female with dyspnea FINDINGS: There are no airspace densities, pulmonary edema, pneumothorax, or cardiomegaly. The lateral costophr enic angles are sharp. IMPRESSION: No acute cardiopulmonary findings.
[2020-02-20] MEDS ORDERED: methylPREDNISolone Sod Succ 40 MG VIAL IVP SCH (09:00)
[2020-02-20] MEDS ORDERED: Sodium Chloride 0.9% 1,000 ML IV SCH (09:30)
--- NOTE | 2020-02-20 09:52 | PDOC.HOSPP ---
- Subjective Encounter Date: 02/20/20 Encounter Time: 09:51 Subjective: Ms. Hoover was seen today in follow-up of AFIB with RVR. She is obtunded, but will answer some questions. Her blood pressure has been dropping. - Objective Vital Signs & Weight: Vital Signs (12 hours) Temp Pulse Resp BP Pulse Ox 02/20/20 08:11 117 H 20 93 L 02/20/20 07:43 96.3 F L 02/20/20 06:00 94 L 02/20/20 05:35 97.2 F L 119 H 20 96/77 94 L Weight Weight 189 lb 11.2 oz Most Recent Monitor Data Heart Rate from ECG 75 NIBP 128/91 NIBP BP-Mean 103 Respiration from ECG 38 SpO2 82 Result Diagrams: 02/20/20 00:12 02/20/20 01:06 Hospitalist ROS - Medication Medications: Active Medications Generic Name Dose Route Start Last Admin Trade Name Freq PRN Reason Stop Dose Admin Amiodarone HCl 450 mg/ 259 mls @ 0 mls/hr 02/20/20 02:45 02/20/20 08:02 Miscellaneous Medication 1 IVPB 259 mls each/ Dextrose/Water INF CLARIBEL Administration Protocol As Directed - Exam Eye: PERRL, anicteric sclera Heart: irregular (barely audible heart sounds) Respiratory: rales, rhonchi, wheezes (+ bilateral rhonchi wheezing and rales.) Gastrointestinal: soft, non-tender, non-distended, normal bowel sounds, no palpable masses, no hepatomegaly Extremities: no cyanosis, no edema Hosp A/P (1) Afib Code(s): I48.91 - UNSPECIFIED ATRIAL FIBRILLATION Status: Acute (2) Peripheral vascular disease Code(s): I73.9 - PERIPHERAL VASCULAR DISEASE, UNSPECIFIED Status: Acute (3) Acute and chronic respiratory failure with hypoxia Code(s): J96.21 - ACUTE AND CHRONIC RESPIRATORY FAILURE WITH HYPOXIA Status: Acute (4) Chronic respiratory failure with hypoxia, on home O2 therapy Code(s): J96.11 - CHRONIC RESPIRATORY FAILURE WITH HYPOXIA; Z99.81 - DEPENDENCE ON SUPPLEMENTAL OXYGEN Status: Acute (5) COPD (chronic obstructive pulmonary disease) Status: Chronic (6) Essential hypertension Code(s): I10 - ESSENTIAL (PRIMARY) HYPERTENSION Status: Chronic - Plan * Acute respiratory failure due to COPD exacerbation- discussed with the patient's . She had had severe lung disease and had exposure to asbestos. He says she has significant scarring. The family and patient had even considered Hospice about 9 months ago. They do not want any heroic measures at resuscitation. Continue Steroids and Duonebs * Hypotension- this may be due to volume depleton- but her WBC count is elevated as well. Will get blood cultures, and place on empiric antibiotics * Continue IV fluids * AFIB- will defer management to Cardiology- Amiodarone drip has been discontinued. Her heart rate is reading in the 80's * PVD- severe * Condition is guarded, and she is appropriate for Palliative care even at this moment. She may not survive this hospitalization.
[2020-02-20] MEDS ORDERED: Cefepime 1 GM in Sodium Chloride 0.9% 100 ML IVPB SCH (10:00)
[2020-02-20] MEDS ORDERED: Lorazepam 2 MG/ML VIAL SLOW IVP PRN (10:08)
[2020-02-20 10:09] LABS: Actual Bicarbonate (HCO3a) 18.9 mEq/L (22-28); CO2 Tension 59.6 mmHg (35.0-45.0); Calcium, Ionized (arterial) 1.09 mmol/L (1.12-1.30); Carboxyhemoglobin (COHb) 0.2 gm% (0.0-3.0); Hemoglobin (Hb) 13.7 g/dL (12.0-16.0); O2 Tension (PaO2), arterial 96.3 mmHg (> 70.0); Potassium - ABG Lab 6.52 mmol/L (3.70-5.30)
[2020-02-20] MEDS ORDERED: Lactated Ringer's 1,000 ML IV SCH (10:15)
[2020-02-20 10:19] LABS: Puncture Site L.R.; pH, Arterial 7.12 (7.35-7.45)
[2020-02-20] MEDS ORDERED: Vancomycin HCl 1.25 GM in Sodium Chloride 0.9% 250 ML 250 ML IVPB SCH (11:00)
[2020-02-20] MEDS ORDERED: Vancomycin 1 GM in Premix Bag 1 BAG IVPB SCH (11:00)
[2020-02-20] MEDS ORDERED: Morphine 4 MG/ML VIAL SLOW IVP PRN (11:29)
--- NOTE | 2020-02-20 18:28 | PDOC.DS.DS ---
Provider - Provider Date of Admission: 02/20/20 02:36 Date of Discharge: 02/20/20 Admitting Provider: Emily Frye MD Consultations: Pulmonary Primary Care Physician: JAY DEMARCO MD Course - Hospital Course Hospital Course: Ms. Hoover is a 74-year-old female that has a history of longstanding COPD. She was admitted to the hospital with worsening shortness of breath. By the time she reached the [facility] she was relatively obtunded and hypotensive. She had been in atrial fibrillation with rapid ventricular response. She had been placed on an amiodarone drip. However due to hypotension the amiodarone drip had to be discontinued. The human resources generalist was consulted urgently and a central line was placed. Her arrived shortly and explained that the patient has been sick for a very long time. She is on oxygen 3 L at home. He says that in the last few months she has been progressively declining. And in fact a 9 months ago there was talk of placing her on hospice. At that time they were not ready for hospice however she has almost [id number] nursing care at home. He expressed that he did not want her to be full code and wished to make her DNR. He did not want her to suffer further. The patient was placed on DuoNebs supplemental oxygen was given a fluid bolus for the low blood pressure. She was placed on empiric IV broad-spectrum antibiotics. However due to her severe respiratory status the patient shortly after being admitted to the hospital. And she likely as a result of longstanding severe COPD. Resuscitation Status: 02/20/20 09:50 Resuscitation Status Routine Resuscitation Status: DNAR: NO Resuscitation Discussed with: - Labs Lab Results: 02/20/20 00:12 02/20/20 01:06 Abnormal Lab Results - Last 48 hrs 02/20/20 00:12: B-Natriuretic Peptide 101.9 H 02/20/20 00:12: Troponin I 0.763 H* 02/20/20 00:12: WBC 17.0 H, MCH 31.3 H, Neutrophils % 77.1 H, Lymphocytes % 13.9 L, Neutrophils # 13.1 H, Monocytes # 1.3 H 02/20/20 01:06: PT 23.3 H 02/20/20 02:15: ABG pO2 106.1 H, A-a O2 Gradient 98.830 H, Sodium 134 L 02/20/20 03:16: Troponin I 0.868 H* 02/20/20 08:00: Troponin I 0.942 H* 02/20/20 10:00: Bicarbonate Actual 18.9 L, ABG pH 7.12 L*, ABG pCO2 59.6 H, ABG pO2 96.3 H, ABG Base Excess -11.0 L, ABG Deoxyhemoglobin 4.9 H, A-a O2 Gradient 85.880 H, Sodium 130 L, Potassium 6.52 H, Ionized Calcium 1.09 L - Physical Exam Vitals: Vital Signs (12 hours) Temp Pulse Resp Pulse Ox 02/20/20 08:11 117 H 20 93 L 02/20/20 08:00 87 L 02/20/20 07:43 96.3 F L Weight Weight 189 lb 11.2 oz Most Recent Monitor Data Heart Rate from ECG 79 NIBP 128/91 NIBP BP-Mean 103 Respiration from ECG 33 SpO2 82 Physical Exam: The patient was seen and examined on the day of discharge. Problem - Problem (1) Afib Code(s): I48.91 - UNSPECIFIED ATRIAL FIBRILLATION Status: Acute (2) Peripheral vascular disease Code(s): I73.9 - PERIPHERAL VASCULAR DISEASE, UNSPECIFIED Status: Acute (3) Acute and chronic respiratory failure with hypoxia Code(s): J96.21 - ACUTE AND CHRONIC RESPIRATORY FAILURE WITH HYPOXIA Status: Acute (4) Chronic respiratory failure with hypoxia, on home O2 therapy Code(s): J96.11 - CHRONIC RESPIRATORY FAILURE WITH HYPOXIA; Z99.81 - DEPENDENCE ON SUPPLEMENTAL OXYGEN Status: Acute (5) COPD (chronic obstructive pulmonary disease) Status: Chronic (6) Essential hypertension Code(s): I10 - ESSENTIAL (PRIMARY) HYPERTENSION Status: Chronic Plan - Discharge Medications Home Medications: Medication Instructions Recorded Confirmed Type ALButerol Sulfate [Ventolin Neb] 3 ml NEB Q8HR PRN 10/13/18 10/13/18 History ALPRAZolam [Alprazolam] 1 mg PO BID PRN 10/13/18 10/13/18 History Arformoterol [Brovana] 15 mcg NEB BID 10/13/18 10/13/18 History Budesonide [Pulmicort] 0.5 mg IH BID 10/13/18 10/13/18 History Carvedilol [Coreg] 12.5 mg PO DAILY 10/13/18 10/13/18 History Cyanocobalamin (Vitamin B-12) 1,000 mcg PO DAILY 10/13/18 10/13/18 History [Vitamin B-12] Estradiol Cypionate 1 mg IM Q30D 10/13/18 10/13/18 History [Depo-Estradiol] Furosemide 80 mg PO PRN PRN 10/13/18 10/13/18 History Ipratropium [place] [Atrovent] 2.5 mg NEB Q8HR 10/13/18 10/13/18 History Ipratropium/Albuterol Sulfate 2 puff INH QID PRN 10/13/18 10/13/18 History [Combivent Respimat] Lansoprazole [Prevacid 24Hr] 30 mg PO DAILY 10/13/18 10/13/18 History Sennosides/Docusate Sodium 2 tab PO DAILY PRN 10/13/18 10/13/18 History [Senexon-S Tablet] Sennosides/Docusate Sodium 1 tab PO DAILY PRN 10/13/18 10/13/18 History [Senokot S] Verapamil [Calan] 120 mg PO DAILY 10/13/18 10/13/18 History Warfarin Sodium [Coumadin] 5 mg PO DAILY 10/13/18 10/13/18 History predniSONE 10 mg PO DAILY 10/13/18 10/13/18 History Acetaminophen [Tylenol Regular 650 mg PO Q4H PRN tab 10/14/18 Rx Strength] Levofloxacin [Levaquin] 750 mg PO DAILY #5 tab 10/14/18 Rx Allergies: hydrocodone Allergy (Verified 10/13/18 16:28) meperidine [From Demerol] Allergy (Verified 10/13/18 16:28) morphine Allergy (Verified 10/13/18 22:14) Anxiety Penicillins Allergy (Verified 10/13/18 16:28) - Follow up Plan Referrals: JAY DEMARCO [Primary Care Provider] - Disposition: Quality - Care Measures CORE MEASURES:: N/A
[2020-02-20 19:33] LABS: SARS-CoV-2 MS2 Positive; SARS-CoV-2 N Gene Negative; SARS-CoV-2 S Gene Negative; SARS-CoV-2 by NAA Not Detected (NotDetected); SARS-CoV-2 orf1ab Negative
--- NOTE | 2020-02-21 00:36 | CON ---
DATE OF CONSULTATION: 02/20/2020 SUBJECTIVE: Ms. Hoover is a 74-year-old female. She is followed primarily by tuber machine operator helper from [place]. She has severe COPD on home oxygen. Her says that she has barely been able to walk to the refrigerator on a daily basis. She presented here with atrial fibrillation, was admitted to the intermediate care unit. I was asked to "come quick" to the room when she was marginally responsive with no palpable pulses. She would awaken and she knew she was in the hospital. About that time, her arrived and informed me that she did not want to be intubated and he did not want her intubated. PAST MEDICAL HISTORY: Remarkable for, 1. Atrial fibrillation. 2. History of bowel obstruction. 3. Severe peripheral vascular disease with multiple stents more in her left lower extremity than the right lower extremity. 4. History of fem-pop bypass. 5. History of gastric sleeve. 6. History of back surgery. 7. History of cholecystectomy and hysterectomy. SOCIAL HISTORY: She is still smoking up to this admission. Does not drink. FAMILY HISTORY: Negative for lung disease in early age. ALLERGIES: SHE IS ALLERGIC TO HYDROCODONE, DEMEROL, MORPHINE, PENICILLIN. REVIEW OF SYSTEMS: Could not accurately be obtained from her. PHYSICAL EXAMINATION: VITAL SIGNS: Heart rate is 117, she was in atrial fibrillation. Respiratory rate was in the teens, oximetry is 93. There was no measurable blood pressure. She did not have a palpable pulse in her groin even though she would awaken. GENERAL: She had a Hep-Lock in her left foot. No peripheral IVs are in place. HEENT: Pupils were equal. Sclerae were anicteric. She was dusky appearing. NECK: Supple. LUNGS: Distant. HEART: Irregular. Soft. 1/6 to 2/6 systolic murmurs heard. ABDOMEN: Soft and nontender. EXTREMITIES: Cool. As mentioned, no palpable pulses. With her 's permission, her right groin was cleansed with Betadine. Femoral vein was cannulated first pass and a triple-lumen catheter was inserted quickly and sewn in place in sterile fashion. Sterile dressing was applied. IV fluid bolus was given to her. Blood gas showed a pH of 7.12. It was explained to the that she is unlikely to survive. She subsequently shortly thereafter. CRITICAL CARE TIME: 40 minutes independent of procedure. Job ID: [id number] MTDD
--- NOTE | 2020-02-24 18:59 | PQF ---
Dear : Jr Earl Date 02/24/2020 Please exercise your independent, professional judgment in responding to the clarification form. Clinical indicators are provided on the bottom of this form for your review Can you please further clarify if NSTEMI is ruled in or ruled out? NSTEMI [X ] Ruled in diagnosis [X ] Continue to treat [ ] Resolved [ ] Ruled out diagnosis [ ] Improving [ ] Cannot rule out diagnosis [ ] Other diagnosis please specify [ ] Unable to determine Physician Signature: Date/Time: For continuity of documentation, please document condition throughout progress notes and discharge summary. Thank You. To be completed by CDI/Coding staff for physician review: Present Clinical Indicators - Signs / Symptoms / Labs Results and Location in Medical Record [ x ] Evaluation 2/2 A.fib with RVR ED Provider pg.1 [ x ] Reports palpitation, denies chest pain ED Provider pg.1 [ x ] EKG: ST segment normal, T waves normal ED Provider pg.2 [ x ] Troponin is elevated ED Provider pg.3 [ x ] NSTEMI ED Provider pg.3 [ x ] Troponin: 0.763H, 0.868H, 0.942H Laboratory [ x ] complaints of shortness of breath H and P pg.1 Present Risk Factors Results and Location in Medical Record [ x ] COPD ED Provider pg.1 [ x ] Smokes cigarettes ED Provider pg.1 [ x ] AFIB with RVR ED Provider pg.1 [ x ] 74 years old H and P pg.1 [ x ] Acute respiratory failure Hospitalist PN pg.2 [ x ] HTN Hospitalist PN pg.2 Present Treatments Results and Location in Medical Record [ x ] EKG ED Provider pg.2 [ x ] Troponin monitoring Laboratory [ x ] IV Fluids MAR [ x ] Aspirin 325mg MAR [ x ] Morphine 6mg IV MAR CDS/Bindery Chief Signature: Cruz Montoya Phone #: ext [phone] Date 02/24/2020 This is a permanent part of the Medical Record [facility]
== END 2020-02-20 11:58 | disposition expired ==
LOC: ERS 23:54 → IMCU/EMU 02-20 02:36
PROVIDERS: ADMIT Internal Medicine; ATTEND Internal Medicine
PROC: 02HV33Z Insertion of Infusion Device into Superior Vena Cava, Percutaneous Approach (ICD-10-PCS; principal; 2020-02-20)
DX: I48.0 Paroxysmal atrial fibrillation (principal); J96.21 Acute and chronic respiratory failure with hypoxia; I21.4 Non-ST elevation (NSTEMI) myocardial infarction; J44.1 Chronic obstructive pulmonary disease with (acute) exacerbation; Z51.5 Encounter for palliative care; Z66 Do not resuscitate; Z20.828 Contact with and (suspected) exposure to other viral communicable diseases; E86.9 Volume depletion, unspecified; I73.9 Peripheral vascular disease, unspecified; Z77.090 Contact with and (suspected) exposure to asbestos; Z98.84 Bariatric surgery status; Z99.81 Dependence on supplemental oxygen; Z79.51 Long term (current) use of inhaled steroids; Z79.52 Long term (current) use of systemic steroids; Z79.02 Long term (current) use of antithrombotics/antiplatelets; Z79.899 Other long term (current) drug therapy; Z88.5 Allergy status to narcotic agent; Z88.1 Allergy status to other antibiotic agents; Z90.710 Acquired absence of both cervix and uterus; Z90.49 Acquired absence of other specified parts of digestive tract; Z86.73 Personal history of transient ischemic attack (TIA), and cerebral infarction without residual deficits; Z95.820 Peripheral vascular angioplasty status with implants and grafts; Z87.891 Personal history of nicotine dependence; Z88.0 Allergy status to penicillin
CPT/HCPCS: 36415; 71045; 80053; 82553; 82805; 83880; 84443; 84484; 85025; 85610; 85730; 87635; 94640; 96365; 96366; 96367; 96374; 96376; J0282; J2270; J2930; J7070; J7620; U0003